=== PATIENT | male | born 2005 | race Caucasian/White ===

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

== ENCOUNTER 2023-06-27 05:11 | Emergency (ER) | payer OTHER ==
[~2023-06-27] VITALS: Ht 185 cm; Wt 72.0 kg
[~2023-06-27 05:11] MED LIST: CIPR500T5 PO
[2023-06-27 05:29] VITALS: BP 130/86
[2023-06-27] MEDS ORDERED: AMOXICILLIN 500 MG CAPSULE PO ONE (05:45)
[2023-06-27] MEDS ORDERED: TETRACAINE 0.5% OPHTH SOLN 5 ML BTL OP ONE (05:45)
[2023-06-27] MEDS ORDERED: TETRACAINE 0.5% OPHTH SOLN 4 ML BTL (SINGLE DOSE ONLY) ONE (05:49)
--- NOTE | 2023-06-27 05:52 | ED EENT ---
History of Present Illness General Chief Complaint: Ear Problems Stated Complaint: EARACHE Nursing Triage Note: WOKE UP WITH LEFT EAR HURTING, STATES CONGESTION STARTED LAST NIGHT. Source: patient Exam Limitations: no limitations History of Present Illness Date Seen by Provider: Jun 27, 2023 Time Seen by Provider: 05:35 Initial Comments This 18-year-old young man presents to the emergency room with complaints of severe left ear pain. He woke yesterday morning with stuffy nose and congestion. This morning he woke with "raging pain" in the left ear. He took ibuprofen 800 mg approximately 45 minutes prior to my examination without any notable improvement. He has history of recurrent otitis media in the past. He denies any fever or cough. He does have some trouble with seasonal allergies. He does not take any prescription medications. Vital signs are normal at this time. Allergies and Home Medications Allergies Coded Allergies: No Known Drug Allergies (Unverified , 09/18/22) Patient Home Medication List Home Medication List Reviewed: Yes Amoxicillin (Amoxicillin) 500 Mg Capsule, 1,000 MG PO BID Prescribed by: TAHIRA ALONSO on 06/27/23 0556 Ciprofloxacin HCl (Ciprofloxacin HCl) 500 Mg Tablet, 500 MG PO BID Prescribed by: Jovan Swanson on 09/18/222009 Review of Systems Review of Systems Constitutional: no symptoms reported Eyes: No Symptoms Reported Ears: See HPI Nose: see HPI Mouth: no symptoms reported Throat: no symptoms reported Respiratory: no symptoms reported Cardiovascular: no symptoms reported Gastrointestinal: no symptoms reported Musculoskeletal: no symptoms reported Skin: no symptoms reported Neurological: See HPI Hematologic/Lymphatic: No Symptoms Reported Immunological/Allergic: no symptoms reported Past Dyrbssq-Ittwck-Hcjoge Hx Patient Social History Tobacco Use?: No Use of E-Cig and/or Vaping dev: No Substance use?: No Alcohol Use?: Yes Alcohol Frequency: Several times a month Immunizations Up To Date First/Initial COVID19 Vaccinat: AUGUST 2021 Second COVID19 Vaccination Mike: SEPTEMBER 2021 Past Medical History Surgeries: Yes (Pilonidal cyst) Respiratory: No Cardiac: No Neurological: No Reproductive Disorders: No Genitourinary: No Gastrointestinal: No Musculoskeletal: No Endocrine: No HEENT: Yes (Recurrent otitis media) Psychosocial: No Physical Exam Vital Signs Vital Signs - First Documented 06/27/23 05:29 Temp 36.9 Pulse 81 Resp 18 B/P (MAP) 130/86 (101) Pulse Ox 99 O2 Delivery Room Air Height, Weight, BMI Height: '" Weight: lbs. oz. kg; 21.00 BMI Method: General Appearance: WD/WN, no apparent distress, thin Eyes: bilateral eye normal inspection Ears: right ear TM normal; left ear tenderness, left ear TM red, left ear other (Distortion of TM with some bulging); bilateral ear auricle normal, bilateral ear canal normal Mouth/Throat: normal mouth inspection, pharynx normal Neck: normal inspection Cardiovascular: regular rate, rhythm, no edema, no murmur Respiratory: lungs clear, normal breath sounds, no respiratory distress Neurologic/Psychiatric: alert, normal mood/affect, oriented x 3 Skin: normal color, warm/dry Progress/Results/Core Measures Results/Orders My Orders Orders - TAHIRA PAGAN MD Amoxicillin Capsule (Amoxicillin Capsule (06/27/23 05:45) Tetracaine 0.5% Ophth Soln (Tetravisc 0. (06/27/23 05:45) Tetracaine 0.5% Ophth Ambar Sdv (Tetracai (06/27/23 05:49) Tetracaine 0.5% Ophth Ambar Sdv (Tetracai (06/27/23 06:00) Medications Given in ED Current Medications Medications Dose Ordered Sig/Rebekah Route Start Time Stop Time Status Last Admin Dose Admin Amoxicillin 1,000 mg ONCE ONCE PO 06/27/23 05:45 06/27/23 05:48 DC 06/27/23 05:53 1,000 MG Tetracaine HCl 4 ml STK-MED ONCE .ROUTE 06/27/23 05:49 06/27/23 05:52 DC 06/27/23 05:53 1 ML Vital Signs/I&O 06/27/23 05:29 Temp 36.9 Pulse 81 Resp 18 B/P (MAP) 130/86 (101) Pulse Ox 99 O2 Delivery Room Air Blood Pressure Mean: 101 Progress Progress Note : Progress Note Patient has evidence of otitis media of the left ear by symptoms and exam. Since he had minimal relief from ibuprofen, we are administering some tetracaine drops in the left ear before discharge. He is receiving his first dose of amoxicillin in the ER. See discharge instructions for further discussion. Departure Impression Primary Impression: Left otitis media Qualified Codes: H66.005 - Acute suppurative otitis media without spontaneous rupture of ear drum, recurrent, left ear Disposition: 01 HOME, SELF-CARE Condition: Improved Departure-Patient Inst. Decision time for Depature: 05:53 Referrals: NO,LOCAL PHYSICIAN (PCP/Family) Primary Care Physician Patient Instructions: Ear Infection ED Add. Discharge Instructions: You may use ibuprofen up to 600 mg every 6 hours as needed and or Tylenol (acetaminophen) up to 1000 mg every 6 hours as needed. Complete the entire course of antibiotics as prescribed. Use fluticasone (Flonase) nasal spray, 2 sprays in each nostril twice daily until symptoms improve. You may reduce frequency to once daily after symptoms significantly improved. This may be purchased [id number]. If you have allergy symptoms, treat with a long-acting [id number] antih istamine such as loratadine (Claritin), cetirizine (Zyrtec), etc. Return to care if you have worsening symptoms despite following these instructions. All discharge instructions reviewed with patient and/or family. Voiced understanding. Scripts Amoxicillin (Amoxicillin) 500 Mg Capsule 1000 MG PO BID, #40 CAP Prov: TAHIRA PAGAN MD 06/27/23 TAHIRA PAGAN MD Jun 27, 2023 05:52
[2023-06-27] MEDS ORDERED: AMOX500C2 PO (05:56)
[2023-06-27] MEDS ORDERED: TETRACAINE 0.5% OPHTH SOLN 4 ML BTL (SINGLE DOSE ONLY) OU ONE (06:00)
== END 2023-06-27 06:01 | disposition home or self-care (01) ==
LOC: EDUNIT# 05:11 → ER 05:13
DX: H66.92 Otitis media, unspecified, left ear (principal)
CPT/HCPCS: 99283